=== PATIENT | female | born 1985 | race Caucasian/White ===

== ENCOUNTER 2016-11-04 08:38 | Emergency (ER) | payer MEDICAID, OTHER ==
[~2016-11-04] VITALS: Ht 165.1 cm; Wt 58.1 kg
[~2016-11-04 08:38] MED LIST: LORTA5 PO
[2016-11-04 08:48] VITALS: BP 118/86; PULSE 76; RESP 16; TEMP 99; O2SAT 100
[2016-11-04] MEDS ORDERED: IBUPROFEN 600 MG TAB PO ONE (09:00)
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
--- NOTE | 2016-11-04 09:46 | RADHPO ---
EXAM DATE/TIME: 11/04/2016 09:17 [facility] COMPARISON: No previous studies available for comparison. INDICATIONS : Finger pain. MEDICAL HISTORY : None. SURGICAL HISTORY : None. ENCOUNTER: Initial ACUITY: 2 days PAIN SCORE: 10/10 LOCATION: Right middle 4th digit FINDINGS: Three view right 4th finger demonstrates that there is an oblique, I don't believe intra-articular, f racture of the 4th middle phalangeal bone. The joint spaces appear to be well preserved. There is o nly mild soft tissue swelling. The rest of the bones are unremarkable. CONCLUSION: Oblique fracture, nondisplaced, of the 4th middle phalangeal bone. Haseeb Henao MD on November 04, 2016 at 9:37 Board Certified Radiologist. This report was verified electronically.
[2016-11-04] MEDS ORDERED: PERC5TAB12 PO (10:15)
[2016-12-15] MEDS ORDERED: IBUP800T23 PO (10:19)
[2016-12-15] MEDS ORDERED: NORC5TAB PO (10:19)
== END 2016-11-04 10:32 | disposition home or self-care (01) ==
LOC: PHED 08:38
DX: S62.600A Fracture of unspecified phalanx of right index finger, initial encounter for closed fracture (principal); V48.4XXA Person boarding or alighting a car injured in noncollision transport accident, initial encounter; Y93.9 Activity, unspecified; Y92.9 Unspecified place or not applicable; Y99.9 Unspecified external cause status; W23.0XXA Caught, crushed, jammed, or pinched between moving objects, initial encounter
CPT/HCPCS: 29130; 73140

== ENCOUNTER → 2016-12-15 | Day surgery (SDC) | payer OTHER ==
[~2016-12-15] VITALS: Ht 165.1 cm; Wt 59.0 kg
[~2016-12-15] MED LIST changes: +BUPIVACAINE HCL PF 0.5% 30 ML VIAL ONE; +DEXAMETHASONE SOD PHOS 4 MG/ML VIAL ONE; +DEXT 5%-NACL 0.45% 1000 ML INJ 1,000 ML IV SCH; +IBUP800T23 PO; +LACTATED RINGER'S 1000 ML INJ 1,000 ML IV ONE; +LACTATED RINGER'S 1000 ML INJ 1,000 ML ONE; -LORTA5 PO; +MIDAZOLAM HCL 2 MG/2 ML VIAL ONE; +NORC5TAB PO; +ONDANSETRON HCL 4 MG/2 ML VIAL IV PUSH ONE; +PERC5TAB12 PO; +PROPOFOL 200 MG/20 ML AMP IV ONE; +SODIUM CHLORIDE 0.9% FLUSH 5 ML FLUSH IVF PRN; +SODIUM CHLORIDE 0.9% FLUSH 5 ML FLUSH IVF SCH; +ceFAZolin 2 GM PREMIX 50 ML ONE
[2016-12-15 06:39] VITALS: BP 108/83; PULSE 70; RESP 16; TEMP 99.1; O2SAT 100
[2016-12-15 06:57] LABS: HEMATOCRIT 37.5 % (35.0-46.0); MEAN CELL VOLUME 94.6 FL (80.0-100.0); MEAN CORPUSCULAR HEMOGLOBIN 33.1 PG (27.0-34.0); MEAN CORPUSCULAR HGB CONC 34.9 % (32.0-36.0); PLATELET COUNT 180 TH/MM3 (150-450); RED BLOOD COUNT 3.97 MIL/MM3 (4.00-5.30); RED CELL DISTRIBUTION WIDTH 13.1 % (11.6-17.2); REVIEW FLAG FINAL; WHITE BLOOD COUNT 5.5 TH/MM3 (4.0-11.0)
--- NOTE | 2016-12-15 08:01 | HP.UPD ---
H&P Update Date: Dec 15, 2016 Note The Pre-Admit History and Physical Examination regarding the above named patient was reviewed (including, but not limited to, vital signs, medications, allergies, co-morbid conditions), and upon re-examination it is noted that: Indicated with "X" x - the patient's condition has not significantly changed since the last examination. [] - the patient's condition has changed since the last examination. Changes: Cecelia Zimmerman MD Dec 15, 2016 08:01
[2016-12-15 10:17] VITALS: PULSE 94
--- NOTE | 2016-12-15 10:22 | HHI.PR ---
Immediate Post Op Note Procedure Date: Dec 15, 2016 Pre Op Diagnosis: (1) Closed displaced fracture of middle phalanx of right ring finger Post Op Diagnosis: (1) Closed displaced fracture of middle phalanx of right ring finger Surgeon: Cecelia Zimmerman Licensed Guide(s): None Procedure: ORIF right fourth middle phalanx. Anesthesia: General Drains: None Tourniquet time (min at mmHg) 73 minutes at 200 mm Hg. Patient to: PACU Patient Condition: Good Implant/Devices: SEE IMPLANT LOG (if applicable) Date/Time of Procedure: SEE SURGICAL CARE RECORD Cecelia Zimmerman MD Dec 15, 2016 10:22
[2016-12-15 10:45] VITALS: PULSE 80; TEMP 98.2
[2016-12-15 11:40] VITALS: BP 100/64; PULSE 79; RESP 14; O2SAT 100
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
== END | disposition home or self-care (01) ==
LOC: PHSDC 06:11
PROVIDERS: ATTEND Specialist
DX: S62.624A Displaced fracture of middle phalanx of right ring finger, initial encounter for closed fracture (principal); W23.0XXA Caught, crushed, jammed, or pinched between moving objects, initial encounter; Z87.891 Personal history of nicotine dependence
CPT/HCPCS: 01830; 26735; 36415; 76000; 85027; C1713; J0690; J1100; J2250; J2405; J3010; J7120

== ENCOUNTER 2017-03-18 10:40 | Emergency (ER) | payer OTHER, MEDICAID ==
[2017-03-18 10:44] VITALS: BP 113/76; PULSE 81; RESP 20; TEMP 98.3; O2SAT 97
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
== END 2017-03-18 12:56 | disposition home or self-care (01) ==
LOC: PHEFT 10:40
DX: S20.212A Contusion of left front wall of thorax, initial encounter (principal); Z87.891 Personal history of nicotine dependence; V43.62XA Car passenger injured in collision with other type car in traffic accident, initial encounter; Y93.89 Activity, other specified; Y92.410 Unspecified street and highway as the place of occurrence of the external cause; Y99.8 Other external cause status
CPT/HCPCS: 71101; 99283